=== PATIENT | female | born 1995 | race African-American/Black ===

== ENCOUNTER 2024-12-26 21:36 | Emergency (ER) | payer BC, MEDICAID ==
[~2024-12-26] VITALS: Ht 162.6 cm; Wt 73.6 kg
--- NOTE | 2024-12-26 22:06 | ED.PDOC ---
History of Present Illness HPI Comments 29 y/o F presents with c/c of tooth pain. Patient endorses on tooth pain to her bottom, left molar after it broke 2x weeks ago. Denies any pertinent history or further acute symptoms. 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 Family History Family History: Unknown Social History Smoker: Non-Smoker Alcohol: Denies ETOH Use Drugs: Denies Drug Use Lives In: Home All Other Systems: Reviewed and Negative (As per HPI) Physical Exam General Appearance: No Apparent Distress, Normal HEENT: Pharynx Normal, TMs Normal, Other (Noted broken molar left lower jaw with moderate decay no obvious abscess) Neck: Full Range of Motion, Non-Tender Respiratory: Lungs Clear, No Respiratory Distress, Normal Breath Sounds Cardiovascular: No Murmur, Normal Peripheral Pulses, Regular Rate/Rhythm Breast Exam: Deferred Gastrointestinal: Non Tender, Soft Genitalia: Deferred Pelvic: Deferred Rectal: Deferred Extremities: Normal range of motion, Non-tender Musculoskeletal : Apperance: Normal Neurologic: Alert, No Motor Deficits, Normal Affect, Normal Mood, No Sensory Deficits Cerebellar Function: Normal Reflexes: NOT DONE Skin: Dry, Normal Color, Warm Lymphatic: No Adenopathy Was a procedure done? Was a procedure done?: No Differential Dx Considerations may include: dental carries, dental abscess, among others X-Ray, Labs, Meds, VS Vital Signs Date Time Temp Pulse Resp B/P (MAP) Pulse Ox O2 Delivery O2 Flow Rate FiO2 12/26/24 21:44 97.3 64 16 136/96 100 97.3 X-Ray, Labs, Meds, VS Comment Patient treated with Rocephin 1 g IM, Rosenberg 5 mg p.o., Toradol 60 mg IM and Hurricaine spray. Script trial of clinda in home advised take medication as prescribed side effects discussed. Advised to follow up with make an appointment with dental for resolution. ER return precautions given patient indicates understanding and agrees with discharge plan of care. Time of 1ST Reevaluation: 21:41 Reevaluation 1ST: Unchanged Time of 2ND Reevaluation: 22:12 Reevaluation 2ND: Improved Patient Education/Counseling: Diagnosis, Treatment, Need For Follow Up Family Education/Counseling: No Family Present SEPSIS Sepsis Screen Date sepsis recognized/suspect: Dec 26, 2024 Time Sepsis recognized/suspect: 2146 Recent Procedure: No On Antibiotic Therapy: No Respiratory Rate >20: No Heart Rate >90: No Temp<36 C (96.8 F) or >38.3 C: No SBP <90 or MAP <65 mmHG: No New Acute Mental Status Change: No Is the patient on CPAP, BIPAP,: No Vital Signs Date Time Temp Pulse Resp B/P (MAP) Pulse Ox O2 Delivery O2 Flow Rate FiO2 12/26/24 21:44 97.3 64 16 136/96 100 97.3 Departure 1 Departure Time of Disposition: 22:13 Impression: Primary Impression: Dental infection Disposition: HOME / SELF CARE / HOMELESS Condition: Stable e-Prescriptions Ibuprofen (Ibuprofen) 800 Mg Tab 800 MG PO Q8HP PRN for 7 Days, #21 TAB Prov: ERICA STEEN 12/26/24 Clindamycin Hcl (Clindamycin Hcl) 300 Mg Cap 300 MG PO QID for 7 Days, #28 CAP Prov: ERICA STEEN 12/26/24 Discharged With: Self Critical Care Note Critical Care Time?: No Stability Stability form required: No Heart Score Heart Score: Heart Score Response (Comments) Value History N/A 0 EKG N/A 0 Age N/A 0 Risk Factors N/A 0 Troponin N/A 0 Total 0 I personally scribed for ER ([email or web address]) on 12/26/24 at 22:06. Electronically submitted by Mg Mendoza ([email or web address]). ER Dec 26, 2024 22:06 ERICA STEEN Dec 26, 2024 22:13
[2024-12-26] MEDS ORDERED: IBUP-1456 PO (22:33)
[2024-12-26] MEDS ORDERED: CLIN1CAP70 PO (22:33)
[2024-12-26] MEDS: HYDROcodone-ACET 5/325MG TAB PO ONE (22:44)
[2024-12-26] MEDS: KETOROLAC TROMETH 60MG/2ML VIAL IM ONE (22:45)
[2024-12-26] MEDS: AMOXICILLIN/CLAVUL 875 MG TAB PO ONE (22:45)
[2024-12-26] MEDS: BENZOCAINE (DENTAL) 20 % SPRAY 60ML MT ONE (22:45)
[2024-12-26 22:52] VITALS: BP 125/77; PULSE 73; RESP 16; TEMP 98.2; O2SAT 100
== END 2024-12-26 22:52 | disposition home or self-care (01) ==
LOC: ER 21:36
DX: K04.7 Periapical abscess without sinus (principal)
CPT/HCPCS: 96372; 99284; J1885